=== PATIENT | male | born 1970 | race Caucasian/White ===

== ENCOUNTER 2017-12-27 19:56 | Emergency (ER) | payer OTHER ==
[2017-12-27 20:02] VITALS: BP 115/65; PULSE 80; TEMP 98; BMI 22.1
[2017-12-27] MEDS ORDERED: KETOROLAC TROMETHAMINE 30 MG/1 ML VIAL IM ONE (20:03)
--- NOTE | 2017-12-27 20:03 | PDOC ---
Rapid Medical Evaluation Time Seen by Provider: 12/27/17 19:58 Medical Evaluation: Allergies Allergy/AdvReac Type Severity Reaction Status Date / Time No Known Allergies Allergy Verified 06/04/15 09:31 12/27/17 19:58 I have performed a brief in-person evaluation of this patient. The patient presents with a chief complaint of: lower back pain s/p slip and fall down 3 concrete steps- denies saddle anesthesia, b/b incontinence Pertinent physical exam findings: diffuse lower back tenderness. No stepoffs, crepitus or deformities palpated. I have ordered the following: toradol The patient will proceed to the ED for further evaluation. Discharge Disposition - Diagnosis Lower back pain - Referrals - Patient Instructions - Post Discharge Activity
[2017-12-27] MEDS ORDERED: KETOROLAC TROMETHAMINE 30 MG/1 ML VIAL ONE (20:12)
[2017-12-27] MEDS ORDERED: CYCLOBENZAPRINE HCL 10 MG TABLET (FP) PO ONE (20:26)
[2017-12-27] MEDS ORDERED: CYCLOBENZAPRINE HCL 10 MG TABLET (FP) ONE (20:27)
--- NOTE | 2017-12-27 20:31 | PDOC ---
History of Present Illness - General Chief Complaint: Back Pain Stated Complaint: BACK PAIN/YFD Time Seen by Provider: 12/27/17 19:58 History Source: Patient Exam Limitations: No Limitations - History of Present Illness Initial Comments: 12/27/17 20:27 Patient is a 47-year-old male, [employer], who presents to emergency department today after falling down 3 stairs while working. Patient states that his boot got caught on the step and he fell on his backside down 3 steps. Denies hitting his head or LOC. He states that he fell approximately 100 pounds a gear on. He now states that he has back pain to the middle of his back. Denies midline tenderness or neck pain, saddle anesthesia, bladder bowel incontinence, numbness and weakness to the extremities. Past History - Travel Traveled outside of the country in the last 30 days: No Close contact w/someone who was outside of country & ill: No - Past Medical History Allergies/Adverse Reactions: Allergies Allergy/AdvReac Type Severity Reaction Status Date / Time No Known Allergies Allergy Verified 12/27/17 20:03 Home Medications: Ambulatory Orders NK [No Known Home Medication] 12/27/17 COPD: No CHF: No - Suicide/Smoking/Psychosocial Hx Smoking Status: No Smoking History: Never smoked Number of Cigarettes Smoked Daily: 0 Hx Alcohol Use: No Drug/Substance Use Hx: No Substance Use Type: None Review of Systems - Review of Systems Able to Perform ROS?: Yes Comments:: 12/27/17 20:26 CONSTITUTIONAL: Absent: fever, chills, diaphoresis, generalized weakness, malaise, loss of appetite GASTROINTESTINAL: Absent: abdominal pain, abdominal distension, nausea, vomiting, diarrhea, constipation, melena, hematochezia GENITOURINARY: Absent: dysuria, frequency, urgency, hesitancy, hematuria, flank pain, genital pain MUSCULOSKELETAL: Present: low back pain Absent: arthralgia, joint swelling SKIN: Absent: rash, itching, pallor NEUROLOGIC: Absent: headache, focal weakness or paresthesias, dizziness, unsteady gait, seizure, mental status changes, bladder or bowel incontinence PSYCHIATRIC: Absent: anxiety, depression, suicidal or homicidal ideation, hallucinations. Is the patient limited Spanish proficient: No *Physical Exam - Vital Signs Last Vital Signs Temp Pulse Resp BP Pulse Ox 98 F 80 18 115/65 98 12/27/17 19:58 12/27/17 19:58 12/27/17 19:58 12/27/17 19:58 12/27/17 19:58 - Physical Exam Comments: 12/27/17 20:26 GENERAL: Well developed, well nourished. Awake and alert. No acute distress. HEENT: Normocephalic, atraumatic. PERRLA, EOMI. No conjunctival pallor. Sclera are non- icteric. Moist mucous membranes. Oropharynx is clear. NECK: Supple. Full ROM. No JVD. Carotid pulses 2+ and symmetric, without bruits. No thyromegaly. No lymphadenopathy. MUSCULOSKELETAL TTP of the paraspinous muscles from L2-L4 consistent with muscle spasm. No midline tenderness. (-) straight leg raise b/l. Normal range of motion at all joints. No bony deformities or tenderness. No CVA tenderness. EXTREMITIES: No cyanosis. No clubbing. No edema. No calf tenderness. SKIN: Warm and dry. Normal capillary refill. No rashes. No jaundice. NEUROLOGICAL: Alert, awake, appropriate. Cranial nerves 2-12 intact. No deficits to light touch and temperature in face, upper extremities and lower extremities. No motor deficits in the in face, upper extremities and lower extremities. Normoreflexic in the upper and lower extremities. Normal speech. Toes are down- going bilaterally. Gait is normal without ataxia. ED Treatment Course - Medications Given in the ED: ED Medications Discontinued Medications Generic Name Dose Route Start Last Admin Trade Name Freq PRN Reason Stop Dose Admin Ketorolac Tromethamine 30 mg 12/27/17 20:03 12/27/17 20:16 Toradol Injection - IM 12/27/17 20:04 30 mg ONCE ONE Administration Medical Decision Making - Medical Decision Making 12/27/17 20:28 Patient is a 47-year-old male, [employer], who presents to emergency department today after falling down 3 stairs while working. Patient states that his boot got caught on the step and he fell on his backside down 3 steps. -Pt with TTP of the b/l paraspinous muscles, L2-L4, with palpable knots consistent with muscle spasm. -No saddle anesthesia or bladder/bowel incontinence. No CVA tenderness. -Pt is neurologically intact on exam with no focal findings. -Toradol given with relief of symptoms -DC home. Ortho follow up given for if symptoms do not resolve. -I discussed the physical exam findings, ancillary test results and final diagnoses with the patient. I answered all of the patient's questions. The patient was satisfied with the care received and felt comfortable with the discharge plan and treatment plan. The Patient agrees to follow up with the primary care physician/specialist within 24-72 hours. Return precautions were given. *DC/Admit/Observation/Transfer Diagnosis at time of Disposition: Lower back pain Qualifiers: Chronicity: acute Back pain laterality: bilateral Sciatica presence: without sciatica Qualified Code(s): M54.5 - Low back pain - Discharge Dispostion Disposition: HOME Condition at time of disposition: Stable Decision to Admit order: No - Referrals Referrals: Nas Rehman MD [Staff Physician] - - Patient Instructions Printed Discharge Instructions: DI for Low Back Pain Additional Instructions: You have low back pain due to a muscle spasm. Please take ibuprofen 800 mg 3 times a day not to exceed 3000 mg a day. You were also prescribed Flexeril. Please take this medication every 8 hours for the first day. Then take the medication before you go to bed. Do not drive after taking this medication as it may make you sleepy. You may use warm compresses on your back to help with her symptoms. Please follow-up with your primary care doctor. If your symptoms do not resolve in 3-5 days, follow-up with orthopedics. A referral has been provided for you. Return to the emergency department if you have worsening back pain, bladder or bowel incontinence, numbness and tingling in her legs, changes in the way you walk, or any new or worsening symptoms. - Post Discharge Activity Forms/Work/School Notes: Back to Work
== END 2017-12-27 21:08 | disposition home or self-care (01) ==
LOC: JERFT 19:56
PROC: 3E0233Z Introduction of Anti-inflammatory into Muscle, Percutaneous Approach (ICD-10-PCS; principal; 2017-12-27)
DX: S39.82XA Other specified injuries of lower back, initial encounter (principal); M62.830 Muscle spasm of back; W10.8XXA Fall (on) (from) other stairs and steps, initial encounter; Y93.89 Activity, other specified; Y92.89 Other specified places as the place of occurrence of the external cause; Y99.0 Civilian activity done for income or pay
CPT/HCPCS: 99281-25

== ENCOUNTER 2021-06-17 09:05 | Emergency (ER) | payer OTHER ==
[2021-06-17 09:20] VITALS: BP 109/63; PULSE 68; TEMP 97.7; BMI 22.8
== END 2021-06-17 11:43 | disposition home or self-care (01) ==
LOC: JERFT 09:05
DX: M25.512 Pain in left shoulder (principal); X50.0XXA Overexertion from strenuous movement or load, initial encounter
CPT/HCPCS: 73030-TC-LT-FY; 99283-25

== ENCOUNTER 2022-01-16 04:39 | Day surgery (SDC) | payer BC ==
[2022-01-15 11:16] VITALS: BMI 22.1
[2022-01-16 10:17] VITALS: TEMP 97.5
[2022-01-16 10:42] VITALS: PULSE 67
[2022-01-16 11:11] VITALS: BP 112/68; RESP 18
== END 2022-01-16 11:18 | disposition home or self-care (01) ==
LOC: JASU-ENDO 04:39
PROVIDERS: ATTEND Internal Medicine Gastroenterology
PROC: 0DBL8ZZ Excision of Transverse Colon, Via Natural or Artificial Opening Endoscopic (ICD-10-PCS; 2022-01-16)
PROC: 0DB78ZX Excision of Stomach, Pylorus, Via Natural or Artificial Opening Endoscopic, Diagnostic (ICD-10-PCS; principal; 2022-01-16 09:30)
DX: D12.3 Benign neoplasm of transverse colon (principal); D37.1 Neoplasm of uncertain behavior of stomach; K31.89 Other diseases of stomach and duodenum; K62.89 Other specified diseases of anus and rectum; K63.89 Other specified diseases of intestine; K64.8 Other hemorrhoids
CPT/HCPCS: 88305-TC; 88342-TC

== ENCOUNTER 2022-03-05 04:28 | Day surgery (SDC) | payer BC ==
[2022-03-01 18:09] VITALS: BMI 21.6
[2022-03-05] MEDS ORDERED: BUPIVACAINE HCL/PF 0.5% (5MG/ML) 10 ML VIAL ONE (11:11)
[2022-03-05] MEDS ORDERED: FENTANYL CITRATE/PF 50 MCG/ML VIAL ONE ×3 (13:18→15:32)
[2022-03-05] MEDS ORDERED: ONDANSETRON 4 MG/2 ML VIAL ONE (13:18)
[2022-03-05] MEDS ORDERED: PROPOFOL 20 ML ONE ×2 (13:18→13:48)
[2022-03-05] MEDS ORDERED: DEXAMETHASONE SOD PHOSPHATE 4 MG/1 ML VIAL ONE (13:18)
[2022-03-05] MEDS ORDERED: LIDOCAINE HCL/PF 2% SDV 5ML VIAL ONE (13:18)
[2022-03-05] MEDS ORDERED: MIDAZOLAM HCL 2 MG/2 ML SINGLE DOSE VIAL ONE (13:18)
[2022-03-05] MEDS ORDERED: ROCURONIUM BROMIDE 50 MG/5 ML SYRINGE ONE (13:18)
[2022-03-05] MEDS ORDERED: BUPIVACAINE HCL/PF 0.25% (2.5MG/ML) 10 ML VIAL ONE (13:25)
[2022-03-05] MEDS ORDERED: BUPIVACAINE HCL/PF 0.25% (2.5MG/ML) 10 ML VIAL IJ ONE (13:59)
[2022-03-05] MEDS ORDERED: cefOXitin SODIUM 1 GM VIAL (RESTRICTED TO ID) IVPB ONE (14:12)
[2022-03-05] MEDS ORDERED: GLYCOPYRROLATE 0.2 MG/1 ML VIAL ONE (14:32)
[2022-03-05] MEDS ORDERED: NEOSTIGMINE METHYLSULFATE 0.5 MG/ML - 10 ML MDV ONE (14:32)
[2022-03-05] MEDS ORDERED: KETOROLAC TROMETHAMINE 30 MG/1 ML VIAL ONE (14:47)
[2022-03-05] MEDS ORDERED: ACETAMINOPHEN 325 MG TABLET (FP) PO PRN (15:29)
[2022-03-05] MEDS ORDERED: oxyCODONE HCL 5 MG TABLET PO PRN ×2 (15:29)
[2022-03-05] MEDS ORDERED: ONDANSETRON 4 MG/2 ML VIAL IVPUSH PRN (15:29)
[2022-03-05] MEDS ORDERED: LACTATED RINGERS SOLUTION 1,000 ML IV SCH (15:30)
[2022-03-05 18:34] VITALS: RESP 18
[2022-03-05 18:37] VITALS: BP 132/84; PULSE 81; TEMP 97.7
== END 2022-03-05 18:10 | disposition home or self-care (01) ==
LOC: JASU-SURG 04:28
PROVIDERS: ATTEND Surgery
PROC: 0DTJ4ZZ Resection of Appendix, Percutaneous Endoscopic Approach (ICD-10-PCS; principal; 2022-03-05 10:00)
DX: K37 Unspecified appendicitis (principal)
CPT/HCPCS: 88304-TC; 94760

== ENCOUNTER 2023-04-03 19:01 | Emergency (ER) | payer OTHER ==
[2023-04-03 19:29] VITALS: BP 118/71; PULSE 74; RESP 18; TEMP 98.2; BMI 22.8
[2023-04-03] MEDS ORDERED: METHOCARBAMOL 750 MG TABLET PO ONE (19:45)
[2023-04-03] MEDS ORDERED: KETOROLAC TROMETHAMINE 30 MG/1 ML VIAL IM ONE (19:46)
[2023-04-03] MEDS ORDERED: METHOCARBAMOL 500 MG TABLET ONE (19:53)
[2023-04-03] MEDS ORDERED: KETOROLAC TROMETHAMINE 30 MG/1 ML VIAL ONE (19:53)
== END 2023-04-03 22:27 | disposition home or self-care (01) ==
LOC: JER 19:01
PROC: 3E0233Z Introduction of Anti-inflammatory into Muscle, Percutaneous Approach (ICD-10-PCS; principal; 2023-04-03)
DX: M54.50 Low back pain, unspecified (principal); S39.012A Strain of muscle, fascia and tendon of lower back, initial encounter; W10.9XXA Fall (on) (from) unspecified stairs and steps, initial encounter
CPT/HCPCS: 72100-TC-FY; 99284-25

== ENCOUNTER 2023-10-13 06:27 | Emergency (ER) | payer BC, OTHER ==
[2023-10-13 06:33] VITALS: BP 140/93; PULSE 69; RESP 18; TEMP 98.2; BMI 22.8
[2023-10-13] MEDS ORDERED: KETOROLAC TROMETHAMINE 30 MG/1 ML VIAL ONE (06:48)
[2023-10-13] MEDS: KETOROLAC TROMETHAMINE 30 MG/1 ML VIAL IVPUSH ONE (06:53)
[2023-10-13] MEDS: SODIUM CHLORIDE 1,000 ML IV STA (06:53)
[2023-10-13] MEDS ORDERED: ONDANSETRON 4 MG/2 ML VIAL ONE (07:01)
[2023-10-13] MEDS: ONDANSETRON 4 MG/2 ML VIAL IVPUSH ONE (07:11)
[2023-10-13 08:41] LABS: HEMATOCRIT 50.1 % (35.4-49); HEMOGLOBIN 16.7 G/dL (11.7-16.9); MCH 32.8 pg (25.7-33.7); MCHC 33.4 g/dl (32.0-35.9); MEAN CELL VOLUME 98.2 fl (80-96); MEAN PLT VOLUME 8.5 fl (7.5-11.1); PLATELET COUNT 155.9 10^3/uL (134-434); RDW 13.8 % (11.9-15.9); WHITE BLOOD COUNT 6.6 10^3/uL (4.0-10.8)
[2023-10-13] MEDS ORDERED: diazePAM 5 MG TABLET ONE (09:16)
[2023-10-13] MEDS ORDERED: LIDOCAINE 5% TOPICAL PATCH ONE (09:17)
[2023-10-13] MEDS: diazePAM 5 MG TABLET PO ONE (09:30)
[2023-10-13] MEDS: LIDOCAINE 5% TOPICAL PATCH TP ONE (09:30)
[2023-10-13 09:32] LABS: ALBUMIN 4.4 g/dl (3.4-5.0); BILIRUBIN,TOTAL 1.6 mg/dl (0.2-1); CALCIUM 9.2 mg/dl (8.5-10.1); CREATININE 0.8 mg/dl (0.6-1.3); POTASSIUM 3.8 mmol/L (3.5-5.1); TOT PROT 6.4 g/dl (6.4-8.2)
[2023-10-13] MEDS ORDERED: LIDOCAINE PATCH REMOVAL MC ONE (22:00)
== END 2023-10-13 10:10 | disposition home or self-care (01) ==
LOC: FER 06:27
PROC: 3E0333Z Introduction of Anti-inflammatory into Peripheral Vein, Percutaneous Approach (ICD-10-PCS; principal; 2023-10-13)
PROC: 3E033GC Introduction of Other Therapeutic Substance into Peripheral Vein, Percutaneous Approach (ICD-10-PCS; 2023-10-13)
PROC: 3E0337Z Introduction of Electrolytic and Water Balance Substance into Peripheral Vein, Percutaneous Approach (ICD-10-PCS; 2023-10-13)
DX: M54.50 Low back pain, unspecified (principal); R10.32 Left lower quadrant pain; R11.0 Nausea
CPT/HCPCS: 36415; 74176-TC; 80053; 81003; 85027; 99284-25